=== PATIENT | female | born 1975 | race Hispanic/Latino ===

== ENCOUNTER 2019-05-31 17:45 | Observation (INO) | payer BC, OTHER ==
[~2019-05-31] VITALS: Ht 157.5 cm; Wt 92.9 kg
[2019-05-31 19:33] LABS: BASOPHILS % (AUTO) 0.8 % (0.0-5.0); EOSINOPHILS % (AUTO) 0.6 % (0.0-8.0); HEMATOCRIT 32.3 % (36-48); LYMPHOCYTES % (AUTO) 32.1 % (21.0-51.0); MEAN CORPUSCULAR HGB CONC 29.1 g/dL (32.0-36.0); MEAN CORPUSCULAR VOLUME 72.1 fL (79-99); MONOCYTES % (AUTO) 6.9 % (3.0-13.0); NEUTROPHILS % (AUTO) 59.4 % (40.0-77.0); PLATELET COUNT (AUTO) 458 K/uL (130-400); RED BLOOD CELL COUNT(AUTO) 4.48 MIL/uL (4.00-5.50); RED CELL DISTRIBUTION WIDTH 18.7 % (11.0-15.5); WHITE BLOOD COUNT (AUTO) 8.5 K/uL (4.8-10.8)
[2019-05-31 19:44] LABS: CREATININE 0.8 mg/dL (0.5-1.5); POTASSIUM 3.8 mmol/L (3.5-5.1)
[2019-05-31 19:46] LABS: INR 0.99 (0.85-1.15); PROTHROMBIN TIME 10.4 SEC (9.6-11.6)
[2019-05-31 19:48] LABS: ALBUMIN 4.3 g/dL (3.5-5.0); BILIRUBIN,TOTAL 0.6 mg/dL (0.2-1.0); TOTAL PROTEIN, SERUM 8.7 g/dL (6.0-8.3)
[2019-05-31] MEDS ORDERED: IOHEXOL-350 75 ML VIAL IV ONE (19:52)
[2019-05-31] MEDS ORDERED: MECLIZINE HCL 25 MG TABLET ONE (21:38)
[2019-05-31] MEDS ORDERED: ONDANSETRON HCL 4 MG/2 ML VIAL IV PRN (22:45)
[2019-05-31] MEDS ORDERED: LACTULOSE 20 GM/30 ML UDCUP PO PRN (22:45)
[2019-05-31] MEDS ORDERED: MECLIZINE HCL 25 MG TABLET PO PRN (22:45)
[2019-05-31] MEDS ORDERED: ACETAMINOPHEN 325 MG TAB PO PRN ×2 (22:45)
[2019-05-31 23:34] VITALS: BP 147/94
[2019-06-01 04:00] VITALS: BP 132/78
--- NOTE | 2019-06-01 04:41 | NUR ---
PATIENT UPDATE 43Y/O female admitted for complaints of initially dizziness of 6 days duration until it got worsened by feeling some numbness to the rt side of her face which prompted her to seek admission to the hospital for fear of possible stroke symptoms. One sister noted to have hx of avery's palsy. Apparently no known medical hx and not on any meds, came in with the bp at 147/94 mmhg and did ask for some tylenol for complaints of headache which afforded relief.Able to move all extremities, no weakness to any extremities, very minimal numbness to the rt side of the face on admission. Slept well after the prn med was given. Pt pending a Neurology consult this am as well as an MRI of the brain with and without contrast. Gets up to the bathroom with stand by assist, at the bedside., will continue to monitor.
[2019-06-01 05:11] LABS: BASOPHILS % (AUTO) 0.9 % (0.0-5.0); EOSINOPHILS % (AUTO) 1.2 % (0.0-8.0); HEMATOCRIT 28.7 % (36-48); MEAN CORPUSCULAR HEMOGLOBIN 21.5 pg (27.0-33.0); MEAN CORPUSCULAR VOLUME 71.8 fL (79-99); MONOCYTES % (AUTO) 8.4 % (3.0-13.0); NEUTROPHILS % (AUTO) 51.2 % (40.0-77.0); PLATELET COUNT (AUTO) 383 K/uL (130-400); RED CELL DISTRIBUTION WIDTH 18.5 % (11.0-15.5); WHITE BLOOD COUNT (AUTO) 6.9 K/uL (4.8-10.8)
[2019-06-01 05:25] LABS: CREATININE 0.8 mg/dL (0.5-1.5); POTASSIUM 3.9 mmol/L (3.5-5.1)
[2019-06-01 07:30] VITALS: BP 124/76
[2019-06-01] MEDS ORDERED: GADODIAMIDE 10 MMOL/20 ML VIAL IV ONE (08:11)
[2019-06-01] MEDS: FAMOTIDINE 20MG TAB 20 MG TAB PO SCH ×2 (09:39→11:31)
[2019-06-01] MEDS ORDERED: MECLIZINE HCL 25 MG TABLET PO SCH (10:00)
[2019-06-01 11:00] VITALS: BP 128/74
--- NOTE | 2019-06-01 16:05 | NUR ---
INITIAL Patient lives with spouse, Desmond Erickson. No home services or DME. Patient is able to complete ADL's independently. 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 PCP is Dr. Timothy Maya. Pharmacy is [facility] located on [facility]. DCP is home. Addendum: 06/01/19 at 1607 by JOHAN AUGUSTINE SS Amended: Links added.
[2019-06-02] MEDS ORDERED: MECLIZINE HCL 25 MG TABLET PO PRN (10:00)
== END 2019-06-01 15:20 | disposition home or self-care (01) ==
LOC: EDH 17:45 → EDHIP 22:38 → 3CH 23:34
PROVIDERS: ADMIT Internal Medicine; ATTEND Internal Medicine
DX: R42 Dizziness and giddiness (principal); R11.2 Nausea with vomiting, unspecified; Z90.49 Acquired absence of other specified parts of digestive tract
CPT/HCPCS: 36415 ×2; 70450; 70496; 70498; 70553; 80048; 80053; 81025; 85025 ×2; 85610; 85651; 85730; 86140; 97116; 97161; 99285; A9579; G0378 ×3; G8978; G8979; G8980; G8981; G8982; G8983; Q9967

== ENCOUNTER → 2024-10-26 | Outpatient (CLI) | payer BC ==
--- NOTE | 2024-10-29 16:38 | HMCIMG ---
EXAM: CR Lumbar Spine, 4 View. CLINICAL HISTORY: RADICULOPATHY, LUMBAR REGION COMPARISON: None provided. FINDINGS: BONES: Grade 1 anterolisthesis L5 relative to S1 ALIGNMENT: Alignment is within normal limits. No significant scoliosis. DISCS / DEGENERATIVE CHANGES: Diffuse degenerative changes. SOFT TISSUES: The soft tissues are unremarkable. MISCELLANEOUS: No intersegmental instability with flexion-extension IMPRESSION: 1. Diffuse degenerative changes. 2. Grade 1 anterolisthesis L5 relative to S1 3. No intersegmental instability with flexion-extension /[place]
== END | disposition home or self-care (01) ==
LOC: RAH 14:58
PROVIDERS: ATTEND Physical Medicine & Rehabilitation
DX: M47.26 Other spondylosis with radiculopathy, lumbar region (principal); M43.17 Spondylolisthesis, lumbosacral region
CPT/HCPCS: 72114